=== PATIENT | female | born 1985 | race Caucasian/White ===

== ENCOUNTER 2018-02-06 18:16 | Emergency (ER) | payer SELFPAY ==
--- NOTE | 2018-02-06 18:40 | UC ---
Respiratory Complaint HPI - HPI Summary HPI Summary: Pt presents with cough and SOB. Cough started yesterday and is not productive. She does have a history of asthma, but has not needed any therapy for the last 8 years. She has visible increased work of breathing during this interview. Does not have any inhalers currently. Denies fever, chills, sore throat, chest pain, abdominal pain, n/v/d/c. - History of Current Complaint Stated Complaint: DIFFICULTLY BREATHING Time Seen by Provider: 02/06/18 18:40 Hx Obtained From: Patient Hx Last Menstrual Period: 01/14/2014 Onset/Duration: Gradual Onset Severity Currently: None Character: Cough: Nonproductive - Allergies/Home Medications Allergies/Adverse Reactions: Allergies Allergy/AdvReac Type Severity Reaction Status Date / Time No Known Allergies Allergy Verified 02/06/18 18:49 PMH/Surg Hx/FS Hx/Imm Hx - Additional Past Medical History Additional PMH: Asthma Previously Healthy: Yes - Surgical History Surgical History: Yes Surgery Procedure, Year, and Place: csection x2 12/2009, 01/2012 + tubal ligation - Family History Known Family History: Positive: Respiratory Disease - Social History Occupation: Employed Full-time Lives: With Family Alcohol Use: Weekly Substance Use Type: None Smoking Status (MU): Never Smoked Tobacco Review of Systems Constitutional: Negative Skin: Negative Eyes: Negative ENT: Negative Respiratory: Shortness Of Breath, Cough Cardiovascular: Negative Gastrointestinal: Negative Neurovascular: Negative Neurological: Negative Psychological: Negative All Other Systems Reviewed And Are Negative: Yes Physical Exam - Summary Physical Exam Summary: GENERAL: Visible increased work of breathing. Mildly anxious SKIN: No rashes, sores, lesions, or open wounds. HEENT: Head: AT/NC Eyes: Conjunctiva clear without inflammation or discharge. Ears: Hearing grossly normal. TMs intact, no bulging, erythema, or edema. Nose: Nasal mucosa pink and moist. NTTP maxillary and frontal sinus. Throat: Posterior oropharynx without exudates, erythema, or tonsillar enlargement. Uvula midline. NECK: Supple. Nontender. No lymphadenopathy. CHEST: Mild wheezing throughout. No r/r. No accessory muscle use. Visible increased work of breathing. Mildly anxious CV: Tachycardia. Without m/r/g. Pulses intact. Brisk cap refill. NEURO: Alert. CN II-XII grossly intact. PSYCH: Age appropriate behavior. Triage Information Reviewed: Yes Re-Evaluation - Re-Evaluation First Eval Re-Evaluation Time: 19:12 Change: Improved Comment: Significant improvement s/p duoneb. Less work breathing. Lung sounds improved. Respiratory Course/Dx - Course Course Of Treatment: CXR: IMPRESSION: No evidence for acute intrathoracic disease. Significantly improved s/p duoneb. Will rx for albuterol HFA and prednisone. - Differential Dx/Diagnosis Provider Diagnoses: Asthma exacerbation Discharge - Sign-Out/Discharge Documenting (check all that apply): Discharge/Admit/Transfer - Discharge Plan Condition: Stable Disposition: HOME Prescriptions: predniSONE TAB* [Deltasone TAB*] 50 mg PO DAILY #5 tab Patient Education Materials: Acute Bronchitis (ED) Referrals: Justyna Gil NP [Primary Care Provider] - Additional Instructions: If you develop a fever, shortness of breath, chest pain, new or worsening symptoms - please call your PCP or go to the ED. Your blood pressure was high at todays visit. Please see your primary provider within 4 weeks for recheck and re-evaluation. - Billing Disposition and Condition Condition: STABLE Disposition: HOME
[2018-02-06 18:47] VITALS: BP 154/94
[2018-02-06] MEDS ORDERED: Albuterol/Ipratropium NEB.SOL* Albuterol 2.5 MG/Ipratropium 0.5 MG 3 ML INH ONE (18:54)
[2018-02-06] MEDS ORDERED: Albuterol HFA INHALER* 8 gm MDI INH ONE (19:34)
--- NOTE | 2018-02-06 19:40 | RAD ---
INDICATION: Cough, shortness of breath. COMPARISON: February 01, 2014 TECHNIQUE: Dual energy PA and routine lateral views of the chest were obtained. REPORT: Clear lungs and pleural spaces. Negative for pneumothorax. The heart, pulmonary vasculature, and mediastinal contours are unremarkable. Unremarkable osseous structures and soft tissue contours. IMPRESSION: No evidence for acute intrathoracic disease.
== END 2018-02-06 19:58 | disposition home or self-care (01) ==
LOC: UCEAST 18:16
DX: J45.901 Unspecified asthma with (acute) exacerbation (principal)
CPT/HCPCS: 71046; 99213; A9270-GY; G0463

== ENCOUNTER 2019-11-27 10:14 | Emergency (ER) | payer BC ==
--- NOTE | 2019-11-27 10:38 | ED ---
Back Pain - HPI Summary HPI Summary: Patient is a 34-year-old female who presents emergency department for low back injury that occurred just prior to arrival. Patient states she was walking down her steps and socks when she slipped and slid down steps injuring her low back and tailbone. Patient states she didn't strike her head but denies also consciousness. Patient notes she's been having chronic weakness to her left leg without change. Symptoms are mild in severity. Movement makes symptoms worse. Nothing makes symptoms better. Patient states she took naproxen prior to arrival. - History of Current Complaint Chief Complaint: EDBackInjuryPain Stated Complaint: FALL INJURY PER PT Time Seen by Provider: 11/27/19 10:22 Hx Obtained From: Patient Hx Last Menstrual Period: 01/14/2014 Pain Intensity: 10 - Allergies/Home Medications Allergies/Adverse Reactions: Allergies Allergy/AdvReac Type Severity Reaction Status Date / Time morphine Allergy Itching Verified 11/27/19 10:20 Home Medications: Home Medications Gabapentin CAP(*) [Neurontin 100 mg CAP(*)] 100 mg PO TID 11/27/19 [History Confirmed 11/27/19] Levonorgestrel-Ethin Estradiol [Lillow 0.15-30 mg-Mcg] 1 tab PO DAILY 11/27/19 [ History Confirmed 11/27/19] busPIRone TAB* [Buspar TAB*] 5 mg PO BID 11/27/19 [History Confirmed 11/27/19] PMH/Surg Hx/FS Hx/Imm Hx Previously Healthy: Yes Endocrine/Hematology History: Denies: Hx Diabetes, Hx Thyroid Disease Cardiovascular History: Denies: Hx Hypertension, Hx Pacemaker/ICD Respiratory History: Denies: Hx Asthma, Hx Chronic Obstructive Pulmonary Disease (COPD) GI History: Denies: Hx Ulcer History: Denies: Hx Dialysis, Hx Renal Disease Sensory History: Denies: Hx Hearing Aid Psychiatric History: Reports: Hx Panic Disorder - ANXIETY DISORDER - Surgical History Surgery Procedure, Year, and Place: csection x2 12/2009, 01/2012. tubal ligation Infectious Disease History: No Infectious Disease History: Denies: Hx Hepatitis, Hx Human Immunodeficiency Virus (HIV), Traveled Outside the [place] in Last 30 Days - Family History Known Family History: Positive: Respiratory Disease, Non-Contributory - Social History Occupation: Unemployed Lives: With Family Alcohol Use: Weekly Substance Use Type: Reports: None Smoking Status (MU): Never Smoked Tobacco Review of Systems - ROS Summary Review of Systems Summary: Naproxen [Naproxen 500 mg tab] 1,000 mg PO BID PRN 06/16/18 [History Confirmed 11/27/19] Gabapentin CAP(*) [Neurontin 100 mg CAP(*)] 100 mg PO TID 11/27/19 [History Confirmed 11/27/19] Levonorgestrel-Ethin Estradiol [Lillow 0.15-30 mg-Mcg] 1 tab PO DAILY 11/27/19 [ History Confirmed 11/27/19] busPIRone TAB* [Buspar TAB*] 5 mg PO BID 11/27/19 [History Confirmed 11/27/19] Cardiovascular: Negative Respiratory: Negative Gastrointestinal: Negative Genitourinary: Negative Positive: Other - Low back pain. Skin: Negative Neurological/Mental Status: Negative All Other Systems Reviewed And Are Negative: Yes Physical Exam Triage Information Reviewed: Yes Vital Signs On Initial Exam: Initial Vitals Temp Pulse Resp BP Pulse Ox 100.1 F 139 98 11/27/19 10:17 11/27/19 10:17 11/27/19 10:17 11/27/19 10:17 11/27/19 10:17 Vital Signs Reviewed: Yes Appearance: Positive: Pain Distress - Pt. standing in room, appears in pain but nontoxic. Skin: Positive: Warm, Dry Head/Face: Positive: Normal Head/Face Inspection Eyes: Positive: Normal, EOMI Neck: Positive: Supple Abdomen Description: Negative: CVA Tenderness (R), CVA Tenderness (L) Musculoskeletal: Positive: Other - 5/5 strength in bilateral LEs with flexion and dorsiflexion. No sensory deficits. Midline tenderness to lumbar and coccyx. Neurological: Positive: Normal, CN Intact II-III Psychiatric: Positive: Affect/Mood Appropriate Procedures - Sedation Patient Received Moderate/Deep Sedation with Procedure: No Diagnostics - Vital Signs Vital Signs Temp Pulse Resp BP Pulse Ox 11/27/19 10:17 100.1 F 139 98 - Laboratory Lab Statement: Any lab studies that have been ordered have been reviewed, and results considered in the medical decision making process. Back Pain Course/Dx - Course Course Of Treatment: Patient presenting with low back and tailbone injury after a mechanical fall. She is no neurological deficits. Patient took naproxen prior to arrival and initially declined pain medication. Lumbar xray per radiology: IMPRESSION: An annotated lucency about the L5 pars interarticularis is not reproduced on subsequent. sacral radiograph. It could be related to superimposition artifact with the iliac crest. Although suspicion is low, if there is tenderness in this region, a CT could be performed. to evaluate for a potential pars defect. Sacral xray per radiolgoy: IMPRESSION: Minimally displaced coccygeal fracture. Lumbar CT obtained given midline tenderness and radiology recommendation. Lumbar CT negative. On re-exam pt. resting comfortably. Small rx for hydro rx. Can continue naproxen as directed. WIll f.u with pcp. Heat/ice. To use donut pillow for sitting. Pt. ambulatory without difficulty. Given return precautions. Pt. understands and agrees with plan. - Diagnoses Differential Diagnosis/HQI/PQRI: Positive: Fracture, Herniated Disc, Strain, Sprain Provider Diagnoses: Coccygeal fracture Discharge ED - Sign-Out/Discharge Documenting (check all that apply): Patient Departure - Discharge Plan Condition: Improved Disposition: HOME Prescriptions: HYDROcodone/ACETAMIN 5-325 MG* [Charlotte 5-325 TAB*] 1 tab PO Q6H PRN #12 tab MDD 4 PRN Reason: Pain - Moderate Patient Education Materials: Coccyx Injury (ED) Referrals: Priyanka Rosa MD [Primary Care Provider] - Additional Instructions: Follow up with PCP within one week for recheck Pain medication as directed Can continue naproxen as directed Can alternate ice and heat Use a donut pillow for sitting Return to ER for increased pain, leg numbness/weakness, loss of bowel or bladder control or if concerned - Billing Disposition and Condition Condition: IMPROVED Disposition: Home
--- OUTSIDE RECORDS SUMMARY | 2019-11-27 11:48 | XMS REPORT | Continuity of Care Document ---
:1985 External Reference #:[id number] Author Name Quique Briceño M.D. (transmitted by agent of provider Marli More ) Address [address] [facility], [place] [address] Care Team Providers Name Role Phone Justyna Gil NP - Nurse Care Team Information Specialized Developer [phone] Practitioner Problems Description No Information Available Social History Type Date Description Comments Sex Unknown ETOH Use Occasionally consumes 3-6 drinks per day wine ETOH Use Consumes 1 glass of wine per week Tobacco Use Start: Unknown Patient has never smoked Smoking Status Reviewed: 11/14/19 Patient has never smoked Exercise Exercises regularly Type/Frequency Allergies, Adverse Reactions, Alerts Active Allergies Reaction Severity Comments Date Morphine itchiness 02/10/2018 Inactive Allergies NKDA 02/10/2018 Medications Active Medications SIG Qnty Indications Ordering Date Provider Cyanocobalamin 1 milliliters Unknown 1000mcg/ML intramuscular q 2 Solution weeks Naproxen twice daily as Mauri, 500mg Tablets needed SOFY Johnson Gabapentin 1 capsule three Unknown 100mg Capsules times daily. Buspirone HCL 1/2 tab twice daily Priyanka Rosa 10mg MD Carlin Tablets Lillow take as directed Unknown 0.15-30mg-mcg Tablets CBD Oil cbd oil 1 or 2 drops Unknown daily as needed Immunizations Description No Information Available Vital Signs Date Vital Result Comment 11/14/2019 11:41am Height 68.25 inches 5'8.25" Weight 237.00 lb Heart Rate 76 /min BP Systolic Sitting 140 mmHg BP Diastolic Sitting 90 mmHg Respiratory Rate 18 /min BMI (Body Mass Index) 35.8 kg/m2 10/25/2019 10:54am Height 68.25 inches 5'8.25" Weight 234.00 lb Heart Rate 108 /min BP Systolic 132 mmHg BP Diastolic 80 mmHg BMI (Body Mass Index) 35.3 kg/m2 Results Description No Information Available Procedures Description No Information Available Medical Devices Description No Information Available Encounters Type Date Location Provider Dx Diagnosis Office Visit 10/25/2019 [facility] Quique Briceño, R53.1 Weakness 10:45a [facility] Charlie R20.8 Other disturbances of skin sensation M54.16 Radiculopathy, lumbar region M79.604 Pain in right leg M79.662 Pain in left lower leg Assessments Date Code Description Provider 11/14/2019 M54.16 Radiculopathy, lumbar region Quique Briceño M.D. 10/25/2019 R53.1 Weakness Quique Briceño M.D. 10/25/2019 R20.8 Other disturbances of skin sensation Quique Briceño M.D. 10/25/2019 M54.16 Radiculopathy, lumbar region Quique Briceño M.D. 10/25/2019 M79.604 Pain in right leg Quique Briceño M.D. 10/25/2019 M79.662 Pain in left lower leg Quique Briceño M.D. Plan of Treatment Future Appointment(s):05/14/2020 9:45 am - Quique Briceño M.D. at [facility]11/14/2019 - Quique Briceño M.D.M54.16 Radiculopathy, lumbar regionNew Xrays:MRI Lumbar Spine W/O, Ordered: Follow up:6 months Functional Status Description No Information Available Mental Status Description No Information Available Referrals Description No Information Available
--- OUTSIDE RECORDS SUMMARY | 2019-11-27 11:48 | XMS REPORT | Continuity of Care Document ---
:1985 External Reference #:[id number] Author Name Quique Briceño M.D. (transmitted by agent of provider Marli More ) Address [address] [facility], [place] [address] Care Team Providers Name Role Phone Justyna Gil NP - Nurse Care Team Information Cover Assembler [phone] Practitioner Problems Description No Information Available Social History Type Date Description Comments Sex Unknown ETOH Use Occasionally consumes 3-6 drinks per day wine ETOH Use Consumes 1 glass of wine per week Tobacco Use Start: Unknown Patient has never smoked Smoking Status Reviewed: 10/25/19 Patient has never smoked Exercise Exercises regularly [...] Available Vital Signs Date Vital Result Comment 10/25/2019 10:54am Height 68.25 inches 5'8.25" Weight 234.00 lb Heart Rate 108 /min BP Systolic 132 mmHg BP Diastolic 80 mmHg BMI (Body Mass Index) 35.3 kg/m2 04/01/2018 12:48pm Height 68.25 inches 5'8.25" Weight 232.50 lb Heart Rate 96 /min BP Systolic Sitting 120 mmHg BP Diastolic Sitting 80 mmHg Respiratory Rate 14 /min Body Temperature 99.3 F Pain Level 4 BMI (Body Mass Index) 35.1 kg/m2 Results Description No Information Available Procedures Description No Information Available Medical Devices Description No Information Available Encounters Description No Information Available Assessments Date Code Description Provider 10/25/2019 R53.1 Weakness Quique Briceño M.D. 10/25/2019 R20.8 Other disturbances of skin sensation Quique Briceño M.D. 10/25/2019 M54.16 Radiculopathy, lumbar region Quique Briceño M.D. Plan of Treatment Future Appointment(s):11/14/2019 11:45 am - Quique Briceño M.D. at [facility]10/25/2019 - Quique Briceño M.D.R53.1 WeaknessNew Xrays:MRI Brain W/Wo, Ordered: 10/25/19Follow up:after MRI and EMGR20.8 Other disturbances of skin eaulvtmdcF25.16 Radiculopathy, lumbar regionNew Orders:EMG w/Nerve Conduct Study, Lower, Ordered: 10/25/19 Functional Status Description No Information Available Mental Status Description No Information Available Referrals Description No Information Available
--- OUTSIDE RECORDS SUMMARY | 2019-11-27 11:48 | XMS REPORT | Continuity of Care Document ---
:1985 External Reference #:[id number] Author Name Sofia Jones CNM Address [address] [place] [address] Care Team Providers Name Role Phone Priyanka Rosa Care Team Information Tractor Mechanic Helper [phone] Problems Active Problems Provider Date Tachycardia Destiny Meade MD Onset: 04/26/2019 Social History Type Date Description Comments Sex Unknown Cigarette Use Does Not Smoke Cigarettes ETOH Use Has consumed alcohol in Pt states she used the past to be a heavy drinker and has quit recently (2014) Recreational Drug Use Denies Drug Use Tobacco Use Start: Unknown Patient has never smoked Smoking Status Reviewed: 12/06/18 Patient has never smoked Exercise Type/Frequency Exercises sporadically Seat Belt/Car Seat Always uses seat belt DEBORAH: 01/03/2012 Estimated Date of Based on LMP Delivery Allergies, Adverse Reactions, Alerts Description No Known Drug Allergies Medications Active Medications SIG Qnty Indications Ordering Date Provider Naproxen Take one right 30tabs Sofia Jones, 10/13/2019 500mg away, then CNM Tablets another in 3-5 hours. Then take twice a day until bleeding subsides Marlissa Take 1 Tablet By 84Tablet Destiny Meade, 05/23/2019 Mouth Every Day 0.15-30mg-mcg as Directed. Skip Tablets Placebo Tablets. Start The Next Pack Right Away. Marlissa Take 1 Tablet By 0Tablet Destiny Meade, 05/23/2019 Mouth Every Day 0.15-30mg-mcg as Directed. Skip Tablets Placebo Tablets. Start The Next Pack Right Away. B Complete Unknown Gabapentin Unknown Buspirone HCL Unknown Medications Administered in Office Medication SIG Qnty Indications Ordering Provider Date PT SCRN Tbco Id as Non User Destiny Meade MD 12/06/2018 Injection Immunizations Description No Information Available Vital Signs Date Vital Result Comment 10/13/2019 12:46pm BP Systolic 130 mmHg BP Diastolic 80 mmHg Height 67 inches 5'7" Weight 237.00 lb BMI (Body Mass Index) 37.1 kg/m2 Last Menstrual Period [id number] 2 Parity 2 12/06/2018 10:36am BP Systolic 120 mmHg BP Diastolic 74 mmHg Height 67 inches 5'7" Weight 235.00 lb BMI (Body Mass Index) 36.8 kg/m2 Last Menstrual Period [id number] 2 Parity 2 Results Description No Information Available Procedures Date Code Description Status 10/13/2019 24913 Echography Pelvic Complete Completed Medical Devices Description No Information Available Encounters Description No Information Available Assessments Date Code Description Provider 10/13/2019 N93.9 Abnormal uterine and vaginal bleeding, Sofia Jones CNM unspecified 10/13/2019 N93.9 Abnormal uterine and vaginal bleeding, Destiny Meade MD unspecified 10/13/2019 N93.9 Abnormal uterine and vaginal bleeding, Ultrasounds unspecified Plan of Treatment No Information Available Functional Status Functional Condition Comment Date Status Glasses Active Mental Status Description No Information Available Referrals Description No Information Available
[2019-11-27] MEDS ORDERED: HYDROcodone/ACETAMIN 5-325 MG* 1 TAB PO ONE (12:12)
[2019-11-27 13:57] VITALS: BP 136/72
== END 2019-11-27 13:56 | disposition home or self-care (01) ==
LOC: ED 10:14
DX: S32.2XXA Fracture of coccyx, initial encounter for closed fracture (principal); W10.9XXA Fall (on) (from) unspecified stairs and steps, initial encounter; Y93.89 Activity, other specified; Y92.9 Unspecified place or not applicable; M51.36 Other intervertebral disc degeneration, lumbar region; F41.9 Anxiety disorder, unspecified; Z79.899 Other long term (current) drug therapy; Z88.5 Allergy status to narcotic agent
CPT/HCPCS: 72110; 72131; 72220; 99282